=== PATIENT | male | born 1930 | race Caucasian/White ===

== ENCOUNTER 2017-01-16 20:15 | Emergency (ER) | payer MEDICARE, BC ==
[2017-01-16 23:48] LABS: HEMOGLOBIN 9.7 gm/dl (14.0-17.5); RED BLOOD COUNT 3.89 M/UL (4.20-5.50); WHITE BLOOD COUNT 12.9 K/UL (4.5-11.0)
[2017-01-17 00:08] LABS: BUN/CREATININE RATIO 28 (0-10)
== END 2017-01-17 05:30 | disposition home or self-care (01) ==
LOC: ER1 20:15
PROVIDERS: Physician Assistant Medical
DX: K59.00 Constipation, unspecified (principal); N28.9 Disorder of kidney and ureter, unspecified; R17 Unspecified jaundice; F03.90 Unspecified dementia, unspecified severity, without behavioral disturbance, psychotic disturbance, mood disturbance, and anxiety; Z79.899 Other long term (current) drug therapy
CPT/HCPCS: 36415; 70450; 71010; 71250; 80053; 80307; 81001; 82140; 82150; 82550; 82553; 83605; 83690; 83874; 84443; 84484; 85025; 85610; 85730; 86140; 87040; 87086; 93005; 96360; 96361; 99284; G0480